=== PATIENT | male | born 1940 | race Hispanic/Latino ===

== ENCOUNTER → 2018-03-26 | Outpatient (CLI) | payer OTHER | END | disposition home or self-care (01) | LOC: SHCH 12:55 → EDUNIT# 13:00 | PROVIDERS: ATTEND Internal Medicine Cardiovascular Disease | DX: I35.0 Nonrheumatic aortic (valve) stenosis (principal); I65.23 Occlusion and stenosis of bilateral carotid arteries | CPT/HCPCS: 93880 ==

== ENCOUNTER → 2019-06-20 | Outpatient (CLI) | payer OTHER | END | disposition home or self-care (01) | LOC: SHCH 07:30 | PROVIDERS: ATTEND Internal Medicine Cardiovascular Disease | DX: I08.0 Rheumatic disorders of both mitral and aortic valves (principal); I10 Essential (primary) hypertension | CPT/HCPCS: 93306 ==

== ENCOUNTER → 2020-08-31 | Outpatient (CLI) | payer OTHER | END | disposition home or self-care (01) | LOC: SHCH 13:13 | PROVIDERS: ATTEND Internal Medicine Cardiovascular Disease | DX: I35.0 Nonrheumatic aortic (valve) stenosis (principal) | CPT/HCPCS: 93306; 93356 ==

== ENCOUNTER 2022-12-07 10:11 | Inpatient (IN) | payer OTHER ==
[~2022-12-07] VITALS: Ht 170.2 cm; Wt 68.7 kg
[2022-12-07 10:48] LABS: BASOPHILS % (AUTO) 0.4 % (0.0-5.0); EOSINOPHILS % (AUTO) 0.2 % (0.0-8.0); HEMATOCRIT 40.5 % (42-54); LYMPHOCYTES % (AUTO) 10.7 % (21.0-51.0); MEAN CORPUSCULAR HGB CONC 35.3 g/dL (32.0-36.0); MEAN CORPUSCULAR VOLUME 90.6 fL (79-99); MONOCYTES % (AUTO) 6.1 % (3.0-13.0); PLATELET COUNT (AUTO) 278 K/uL (130-400); RED BLOOD CELL COUNT(AUTO) 4.47 MIL/uL (4.50-6.20); RED CELL DISTRIBUTION WIDTH 13.6 % (11.0-15.5); WHITE BLOOD COUNT (AUTO) 8.4 K/uL (4.8-10.8)
[2022-12-07 10:49] LABS: APPEARANCE,URINE CLEAR (CLEAR); BILIRUBIN,URINE NEGATIVE (NEGATIVE); COLOR,URINE YELLOW (YELLOW); GLUCOSE, URINE (UA) NEGATIVE (NEGATIVE); KETONES,URINE NEGATIVE (NEGATIVE); LEUKOCYTE ESTERASE ,URINE NEGATIVE Leu/uL (NEGATIVE); NITRATE,URINE NEGATIVE (NEGATIVE); OCCULT BLOOD,URINE NEGATIVE (NEGATIVE); PH,URINE 6.5 (5.0-8.0); PROTEIN,URINE 10 mg/dL (NEGATIVE)
[2022-12-07 11:10] LABS: ALBUMIN 3.7 g/dL (3.5-5.0); TOTAL PROTEIN, SERUM 7.1 g/dL (6.0-8.3)
[2022-12-07 11:14] LABS: RBC,URINE 0-1 /HPF (0-1); SQUAMOUS EPITHELIAL CELL,UR RARE /HPF (0-2)
[2022-12-07] MEDS ORDERED: 0.9%NACL 1000ML 1,000 ML IV ONE (12:00)
[2022-12-07] MEDS ORDERED: HYDRALAZINE 20MG/ML VIAL IV ONE (14:00)
[2022-12-07] MEDS ORDERED: ACETAMINOPHEN 325 MG TAB PO PRN ×2 (14:30)
[2022-12-07] MEDS ORDERED: GLUCAGON 1MG KIT 1 MG ML IM PRN (14:30)
[2022-12-07] MEDS ORDERED: POTASSIUM CHLORIDE 20MEQ/100ML 100 ML IV PRN (14:30)
[2022-12-07] MEDS ORDERED: LACTULOSE 20 GM/30 ML UDCUP PO PRN (14:30)
[2022-12-07] MEDS ORDERED: HYDRALAZINE 20MG/ML VIAL IV PRN (14:30)
[2022-12-07] MEDS ORDERED: ONDANSETRON 4MG INJ IV PRN (14:30)
[2022-12-07] MEDS ORDERED: DEXTROSE 50%-WATER 50 ML DISP.SYRIN IV PRN (14:30)
[2022-12-07 14:48] LABS: INR 1.4 (0.85-1.15)
[2022-12-07 14:57] LABS: HEMOGLOBIN A1C 5.5 % (4.0-6.0)
[2022-12-07] MEDS ORDERED: LOVA20TA3 PO (15:18)
[2022-12-07] MEDS ORDERED: DOCU100C33 PO (15:18)
[2022-12-07] MEDS ORDERED: FAMO40TA75 PO (15:18)
[2022-12-07] MEDS ORDERED: HYDR12.54 PO (15:18)
[2022-12-07] MEDS ORDERED: TAMS-1 PO (15:18)
[2022-12-07] MEDS ORDERED: ASPI-1443 PO (15:18)
[2022-12-07] MEDS ORDERED: OXYB10TA30 PO (15:18)
[2022-12-07] MEDS ORDERED: DIPH-1242 PO (15:18)
[2022-12-07] MEDS ORDERED: METF-444 PO (15:18)
[2022-12-07] MEDS ORDERED: NORT25CA3 PO (15:18)
[2022-12-07] MEDS ORDERED: LISI40TA9 PO (15:18)
[2022-12-07] MEDS: 0.9%NACL 1000ML 1,000 ML IV SCH (15:22)
[2022-12-07] MEDS: INSULIN HUMULIN R 100 UNIT/ML 3ML SQ SCH ×2 (16:30→21:51)
[2022-12-07 17:22] VITALS: BP 170/107
[2022-12-07] MEDS ORDERED: DOCUSATE SODIUM 100 MG CAP PO PRN (18:00)
[2022-12-07] MEDS ORDERED: LISINOPRIL 40 MG TABLET ONE (18:43)
[2022-12-07] MEDS: LISINOPRIL 40 MG TABLET PO SCH (19:00)
[2022-12-07 20:04] VITALS: BP 159/96
[2022-12-07 23:07] VITALS: BP 151/86
[2022-12-08 04:00] VITALS: BP 105/64
[2022-12-08 04:21] LABS: HEMATOCRIT 39.3 % (42-54); MEAN CORPUSCULAR HGB CONC 35.6 g/dL (32.0-36.0); MEAN CORPUSCULAR VOLUME 89.9 fL (79-99); RED BLOOD CELL COUNT(AUTO) 4.37 MIL/uL (4.50-6.20); RED CELL DISTRIBUTION WIDTH 13.6 % (11.0-15.5); WHITE BLOOD COUNT (AUTO) 10.8 K/uL (4.8-10.8)
[2022-12-08 04:34] LABS: CREATININE 0.9 mg/dL (0.5-1.5)
[2022-12-08] MEDS: INSULIN HUMULIN R 100 UNIT/ML 3ML SQ SCH ×5 (06:44→21:00)
[2022-12-08 08:00] VITALS: BP 146/84
[2022-12-08] MEDS: OXYBUTYNIN 5 MG TAB.SR.24H PO SCH (08:34)
[2022-12-08] MEDS: ATORVASTATIN 10 MG TABLET PO SCH (08:34)
[2022-12-08] MEDS: ASPIRIN 81 MG EC TAB PO SCH (08:34)
[2022-12-08] MEDS: TAMSULOSIN HCL 0.4 MG CAP.ER.24H PO SCH (08:34)
[2022-12-08] MEDS: LISINOPRIL 40 MG TABLET PO SCH (08:35)
[2022-12-08] MEDS: PANTOPRAZOLE 40 MG/VIAL IVP SCH (08:35)
[2022-12-08] MEDS ORDERED: LISINOPRIL 40 MG TABLET PO SCH (09:00)
[2022-12-08] MEDS ORDERED: ENOXAPARIN SODIUM 40 MG/0.4 ML SYRINGE SQ SCH (09:00)
[2022-12-08] MEDS ORDERED: HYDROCHLOROTHIAZIDE 25 MG TABLET PO SCH (09:00)
[2022-12-08] MEDS ORDERED: POTASSIUM CHLORIDE 10% ELIXIR 20 MEQ/15 ML UDCUP PO ONE (10:00)
[2022-12-08] MEDS ORDERED: KCL 20 MEQ ERTAB PO ONE (10:30)
[2022-12-08 12:00] VITALS: BP_SYST 130; BP_SYST 144; BP_SYST 163; BP_DIAS 79; BP_DIAS 85; BP_DIAS 89
[2022-12-08] MEDS: MAGNESIUM 2GM PREMIX 50ML 50 ML IV PRN (13:17)
[2022-12-08 13:36] LABS: CREATININE,URINE RANDOM 38 mg/dL (30-135); SODIUM,URINE RANDOM 65 mmol/l (40-220)
[2022-12-08 13:51] LABS: THYROID STIMULATING HORMONE 1.41 uIU/mL (0.36-3.74); URIC ACID 2.9 mg/dL (2.6-7.2)
[2022-12-08 16:00] VITALS: BP 153/88
[2022-12-08] MEDS: 0.9%NACL 1000ML 1,000 ML IV SCH (17:51)
[2022-12-08 20:08] VITALS: BP 147/85
[2022-12-08] MEDS: POTASSIUM CHLORIDE 10% ELIXIR 20 MEQ/15 ML UDCUP PO PRN ×2 (21:35→21:36)
[2022-12-08 23:01] VITALS: BP 148/79
[2022-12-09 04:53] VITALS: BP 155/80
[2022-12-09 04:56] LABS: MEAN CORPUSCULAR HEMOGLOBIN 32.1 pg (27.0-33.0); MEAN CORPUSCULAR HGB CONC 34.7 g/dL (32.0-36.0); MEAN CORPUSCULAR VOLUME 92.5 fL (79-99); PLATELET COUNT (AUTO) 221 K/uL (130-400); RED BLOOD CELL COUNT(AUTO) 4.11 MIL/uL (4.50-6.20); RED CELL DISTRIBUTION WIDTH 13.9 % (11.0-15.5); WHITE BLOOD COUNT (AUTO) 7.4 K/uL (4.8-10.8)
[2022-12-09 05:06] LABS: CREATININE 0.8 mg/dL (0.5-1.5); MAGNESIUM 1.8 mg/dL (1.80-2.40); POTASSIUM 3.7 mmol/L (3.5-5.1)
[2022-12-09 05:12] LABS: BAND NEUTROPHILS % (MANUAL) 4 % (0-2); BASOPHILS % (MANUAL) 2 % (0-2); EOSINOPHILS % (MANUAL) 1 % (1-6); LYMPHOCYTES % (MANUAL) 12 % (22-44); MAN.DIFF COMMENT-IMPRESSION MANUAL DIFFERENTIAL; MONOCYTES % (MANUAL) 6 % (2-9); PLATELET MORPHOLOGY COMMENT ADEQUATE; SEGMENTED NEUTROPHILS % 75 % (40-70)
[2022-12-09] MEDS: MAGNESIUM 2GM PREMIX 50ML 50 ML IV PRN (05:24)
[2022-12-09] MEDS: 0.9%NACL 1000ML 1,000 ML IV SCH ×2 (05:26→19:50)
[2022-12-09] MEDS: POTASSIUM CHLORIDE 10% ELIXIR 20 MEQ/15 ML UDCUP PO PRN (05:32)
[2022-12-09] MEDS: INSULIN HUMULIN R 100 UNIT/ML 3ML SQ SCH ×4 (06:21→20:37)
[2022-12-09 08:00] VITALS: BP 158/89
[2022-12-09] MEDS: ASPIRIN 81 MG EC TAB PO SCH (09:01)
[2022-12-09] MEDS: LISINOPRIL 40 MG TABLET PO SCH (09:02)
[2022-12-09] MEDS: ATORVASTATIN 10 MG TABLET PO SCH (09:02)
[2022-12-09] MEDS: TAMSULOSIN HCL 0.4 MG CAP.ER.24H PO SCH (09:02)
[2022-12-09] MEDS: OXYBUTYNIN 5 MG TAB.SR.24H PO SCH (09:04)
[2022-12-09] MEDS: PANTOPRAZOLE 40 MG/VIAL IVP SCH (09:04)
[2022-12-09] MEDS: KCL 20 MEQ ERTAB PO PRN (09:07)
[2022-12-09 12:00] VITALS: BP 162/80
[2022-12-09 16:00] VITALS: BP 146/84
[2022-12-09 19:58] VITALS: BP 154/78
[2022-12-09 23:15] VITALS: BP 160/89
[2022-12-10 04:06] VITALS: BP 151/73
[2022-12-10 05:44] LABS: BASOPHILS % (AUTO) 0.4 % (0.0-5.0); EOSINOPHILS % (AUTO) 1.6 % (0.0-8.0); HEMATOCRIT 38.7 % (42-54); LYMPHOCYTES % (AUTO) 18.5 % (21.0-51.0); MEAN CORPUSCULAR HEMOGLOBIN 32.1 pg (27.0-33.0); MEAN CORPUSCULAR HGB CONC 34.6 g/dL (32.0-36.0); MEAN CORPUSCULAR VOLUME 92.8 fL (79-99); MONOCYTES % (AUTO) 8.7 % (3.0-13.0); NEUTROPHILS % (AUTO) 70.1 % (40.0-77.0); PLATELET COUNT (AUTO) 237 K/uL (130-400); RED BLOOD CELL COUNT(AUTO) 4.17 MIL/uL (4.50-6.20); WHITE BLOOD COUNT (AUTO) 6.8 K/uL (4.8-10.8)
[2022-12-10 06:06] LABS: ALBUMIN 2.9 g/dL (3.5-5.0); CREATININE 0.6 mg/dL (0.5-1.5); MAGNESIUM 1.8 mg/dL (1.80-2.40); POTASSIUM 3.5 mmol/L (3.5-5.1); TOTAL PROTEIN, SERUM 6.3 g/dL (6.0-8.3)
[2022-12-10] MEDS: INSULIN HUMULIN R 100 UNIT/ML 3ML SQ SCH ×4 (06:06→20:20)
[2022-12-10] MEDS: MAGNESIUM 2GM PREMIX 50ML 50 ML IV PRN (06:15)
[2022-12-10] MEDS: KCL 20 MEQ ERTAB PO PRN ×2 (06:16→09:37)
[2022-12-10] MEDS: 0.9%NACL 1000ML 1,000 ML IV SCH ×2 (06:17→20:22)
[2022-12-10 08:00] VITALS: BP 154/87
[2022-12-10] MEDS: ASPIRIN 81 MG EC TAB PO SCH (09:00)
[2022-12-10] MEDS ORDERED: HYDROXYZINE 25 MG TABLET PO PRN (09:00)
[2022-12-10] MEDS: PANTOPRAZOLE 40 MG/VIAL IVP SCH (09:35)
[2022-12-10] MEDS: HYDROXYZINE 25 MG TABLET PO SCH ×2 (09:36→20:22)
[2022-12-10] MEDS: MEMANTINE HCL 5 MG TABLET PO SCH (09:36)
[2022-12-10] MEDS: TAMSULOSIN HCL 0.4 MG CAP.ER.24H PO SCH (09:36)
[2022-12-10] MEDS: ATORVASTATIN 10 MG TABLET PO SCH (09:36)
[2022-12-10] MEDS: OXYBUTYNIN 5 MG TAB.SR.24H PO SCH (09:37)
[2022-12-10] MEDS: LISINOPRIL 40 MG TABLET PO SCH (09:37)
[2022-12-10 11:59] VITALS: BP 173/95
[2022-12-10 15:50] VITALS: BP 151/83
[2022-12-10 20:00] VITALS: BP 160/75
[2022-12-11] VITALS: BP 120/63
[2022-12-11 04:00] VITALS: BP 140/78
[2022-12-11 04:39] LABS: HEMATOCRIT 40.2 % (42-54); MEAN CORPUSCULAR HEMOGLOBIN 31.7 pg (27.0-33.0); MEAN CORPUSCULAR HGB CONC 34.6 g/dL (32.0-36.0); MEAN CORPUSCULAR VOLUME 91.8 fL (79-99); RED BLOOD CELL COUNT(AUTO) 4.38 MIL/uL (4.50-6.20); WHITE BLOOD COUNT (AUTO) 10.8 K/uL (4.8-10.8)
[2022-12-11 04:56] LABS: CREATININE 0.8 mg/dL (0.5-1.5); POTASSIUM 3.8 mmol/L (3.5-5.1)
[2022-12-11] MEDS: INSULIN HUMULIN R 100 UNIT/ML 3ML SQ SCH ×3 (05:19→16:30)
[2022-12-11] MEDS: KCL 20 MEQ ERTAB PO PRN (06:08)
[2022-12-11 08:00] VITALS: BP 158/89
[2022-12-11] MEDS: MAGNESIUM 2GM PREMIX 50ML 50 ML IV PRN (09:50)
[2022-12-11] MEDS: LISINOPRIL 40 MG TABLET PO SCH (09:51)
[2022-12-11] MEDS: ASPIRIN 81 MG EC TAB PO SCH (09:51)
[2022-12-11] MEDS: ATORVASTATIN 10 MG TABLET PO SCH (09:51)
[2022-12-11] MEDS: POTASSIUM CHLORIDE 10% ELIXIR 20 MEQ/15 ML UDCUP PO PRN (09:51)
[2022-12-11] MEDS: TAMSULOSIN HCL 0.4 MG CAP.ER.24H PO SCH (09:51)
[2022-12-11] MEDS: PANTOPRAZOLE 40 MG/VIAL IVP SCH (09:51)
[2022-12-11] MEDS: MEMANTINE HCL 5 MG TABLET PO SCH (09:52)
[2022-12-11] MEDS: OXYBUTYNIN 5 MG TAB.SR.24H PO SCH (09:52)
[2022-12-11] MEDS: HYDROXYZINE 25 MG TABLET PO SCH (09:52)
[2022-12-11] MEDS: 0.9%NACL 1000ML 1,000 ML IV SCH (11:45)
[2022-12-11 12:00] VITALS: BP 141/78
[2022-12-11 16:00] VITALS: BP 135/78
== END 2022-12-11 18:50 | disposition home or self-care (01) | DRG 86 ==
LOC: EDH 10:11 → EDHIP 14:12 → 4BH 16:30
PROVIDERS: ADMIT Internal Medicine; ATTEND Internal Medicine
DX: S06.5X0A Traumatic subdural hemorrhage without loss of consciousness, initial encounter (principal); E87.1 Hypo-osmolality and hyponatremia; Z20.822 Contact with and (suspected) exposure to COVID-19; F03.90 Unspecified dementia, unspecified severity, without behavioral disturbance, psychotic disturbance, mood disturbance, and anxiety; R29.6 Repeated falls; M47.812 Spondylosis without myelopathy or radiculopathy, cervical region; I13.10 Hypertensive heart and chronic kidney disease without heart failure, with stage 1 through stage 4 chronic kidney disease, or unspecified chronic kidney disease; N18.9 Chronic kidney disease, unspecified; I25.10 Atherosclerotic heart disease of native coronary artery without angina pectoris; E11.65 Type 2 diabetes mellitus with hyperglycemia; E11.22 Type 2 diabetes mellitus with diabetic chronic kidney disease; E78.00 Pure hypercholesterolemia, unspecified; E87.6 Hypokalemia; G47.00 Insomnia, unspecified; I44.7 Left bundle-branch block, unspecified; N28.1 Cyst of kidney, acquired; Z95.5 Presence of coronary angioplasty implant and graft; Z91.81 History of falling; Z95.1 Presence of aortocoronary bypass graft; W18.39XA Other fall on same level, initial encounter; Y93.89 Activity, other specified; Y92.89 Other specified places as the place of occurrence of the external cause; Y99.8 Other external cause status
CPT/HCPCS: 36415; 70450; 70551; 72125; 76770; 80048; 80053; 80061; 81001; 82570; 82948; 83036; 83735; 83880; 83930; 83935; 84300; 84443; 84550; 85025; 85027; 85610; 87635; 93005; 93306; 93356; 93880; 97039; C9113; C9803; G0378; J0360; J1650; J1815; J3475

== ENCOUNTER → 2023-01-07 | Outpatient (CLI) | payer OTHER ==
[~2023-01-07] MED LIST: DIPH-1242 PO; DOCU100C33 PO; FAMO40TA75 PO; LISI40TA9 PO; LOVA20TA3 PO; METF-444 PO; NORT25CA3 PO; OXYB10TA30 PO; TAMS-1 PO
== END | disposition home or self-care (01) ==
LOC: SHCH 10:59
PROVIDERS: ATTEND Internal Medicine Cardiovascular Disease
DX: I35.0 Nonrheumatic aortic (valve) stenosis (principal); I51.7 Cardiomegaly
CPT/HCPCS: 93306

== ENCOUNTER → 2024-05-30 | Outpatient (CLI) | payer OTHER | END | disposition home or self-care (01) | LOC: SHCH 12:49 | PROVIDERS: ATTEND Internal Medicine Cardiovascular Disease | DX: I35.0 Nonrheumatic aortic (valve) stenosis (principal) | CPT/HCPCS: 93306 ==